=== PATIENT | female | born 1980 | race Caucasian/White ===

== ENCOUNTER 2024-08-03 19:05 | Emergency (ER) | payer MEDICAID, SELFPAY ==
[2024-08-03 19:09] VITALS: BP 206/133; BP 211/144; PULSE 88; RESP 17; TEMP 37.4; O2SAT 99
--- NOTE | 2024-08-03 19:19 | XR_ITS ---
Examination: PA lateral chest 2 views TECHNIQUE: Upright PA lateral chest 2 views Date and time: August 03, 20242007 hours INDICATIONS: High blood pressure today. FINDINGS: Normal heart size. Lungs are clear. The osseous structures are intact IMPRESSION: No active disease
--- NOTE | 2024-08-03 19:20 | PD.EDADULT ---
ED General RME/HPI General Stated complaint: [facility]P CLEARANCE Time Seen by Provider: 08/03/24 19:18 Arrival date/time: 08/03/24 19:05 RME / HPI RME / HPI narrative: 44-year-old female presents to the ED via law enforcement needing a assisted clearance for hypertension. Blood pressure initially 211/144. Patient denies any history of blood pressure issues and takes no medications. She denies any use of methamphetamine or cocaine. She has had some dyspnea on exertion but denies any chest pain. Clonidine 0.3 mg p.o. and metoprolol 50 mg p.o. ordered. Related Data Allergies Allergy/AdvReac Type Severity Reaction Status Date / Time Unable to Assess Allergy Verified 08/16/18 09:58 Course Orders Category Date Time Status EKG (ED ONLY) *Do not use* NOW Care 08/03/24 19:15 Active EKG (ED Only) Stat Exams 08/03/24 19:15 Ordered XR chest 2V Stat Exams 08/03/24 19:19 Ordered B-Type Natriuretic Peptide Stat Lab 08/03/24 19:19 Ordered CBC Stat Lab 08/03/24 19:19 Ordered Comprehensive Metabolic Panel Stat Lab 08/03/24 19:19 Ordered Drug Screen,Urine Stat Lab 08/03/24 19:19 Ordered LDH (Lactate Dehydrogenase) Stat Lab 08/03/24 19:19 Ordered Magnesium Stat Lab 08/03/24 19:19 Ordered Partial Thromboplastin Time Stat Lab 08/03/24 19:19 Ordered Prothrombin Time with INR Stat Lab 08/03/24 19:19 Ordered Troponin I Stat Lab 08/03/24 19:19 Ordered Urinalysis Stat Lab 08/03/24 19:19 Ordered Metoprolol Tartrate [Lopressor] Med 08/03/24 19:15 Pending 50 mg PO X1 ONE cloNIDine HCL [Catapres] Med 08/03/24 19:15 Pending 0.3 mg PO X1 ONE hydrALAZINE HCL [Apresoline] Med 08/03/24 19:19 Discontinued 50 mg PO X1 ONE Vital Signs Vital signs: Vital Signs Temperature 99.3 F 08/03/24 19:09 Pulse Rate 88 08/03/24 19:09 Respiratory Rate 17 08/03/24 19:09 Blood Pressure 211/144 H 08/03/24 19:09 Pulse Oximetry (%) 99 08/03/24 19:09 Oxygen Delivery Method Room Air 08/03/24 19:09 Discharge Plan Patient/Caregiver Discharge Instructions Print Language: Swedish MDM Medication Administration(s) Medication Administration History Clonidine (Clonidine Hcl 0.1 Mg Tablet) 0.3 mg PO X1 ONE Stop: 08/03/24 19:16 Metoprolol Tartrate (Metoprolol Tartrate 25 Mg Tablet) 50 mg PO X1 ONE Stop: 08/03/24 19:16 Discontinued Medications Hydralazine HCl (Hydralazine Hcl 25 Mg Tablet) 50 mg PO X1 ONE Stop: 08/03/24 19:20
[2024-08-03 20:26] VITALS: BMI 44.7
== END 2024-08-03 21:00 | disposition left against medical advice (07) ==
PROVIDERS: Emergency Provider Emergency Medicine
DX: Z02.89 Encounter for other administrative examinations (principal); R03.0 Elevated blood-pressure reading, without diagnosis of hypertension; R06.09 Other forms of dyspnea; Z53.29 Procedure and treatment not carried out because of patient's decision for other reasons
CPT/HCPCS: 71046; 80053; 80307; 81001; 83615; 83735; 83880; 84484; 85025; 85610; 85730; 99281